=== PATIENT | female | born 1985 | race Caucasian/White ===

== ENCOUNTER 2016-07-22 07:45 | Emergency (ER) | payer SELFPAY ==
[~2016-07-22] VITALS: Ht 162.6 cm; Wt 87.7 kg
[2016-07-22 07:50] VITALS: BP 152/83; TEMP 98.2
[2016-07-22] MEDS ORDERED: LOPRESSOR 225 MG/TAB PO (07:53)
[2016-07-22] MEDS ORDERED: LEXAPRO20 MG PO (07:53)
[2016-07-22] MEDS ORDERED: CATAPRES 0.1MG0.1 MG PO (07:54)
[2016-07-22 08:42] LABS: PH 5 (5-8); SQUAMOUS EPITHELIAL 0-2 /hpf; URINE APPEARANCE Clear; URINE BACTERIA None Seen /hpf; URINE BILIRUBIN Negative (NEGATIVE); URINE BLOOD 1+ (NEGATIVE); URINE COLOR Yellow; URINE GLUCOSE Negative (NEGATIVE); URINE KETONE Negative (NEGATIVE); URINE RBC 0-2 /hpf; URINE UROBILINOGEN Negative (NEGATIVE); URINE WBC 0-2 /hpf
[2016-07-22] MEDS ORDERED: NORCO 325 MG-51 TAB PO (09:42)
[2016-07-22 10:02] VITALS: PULSE 89
== END 2016-07-22 10:03 | disposition home or self-care (01) ==
LOC: COL.ER 07:45
PROVIDERS: Nurse Practitioner
DX: R10.12 Left upper quadrant pain (principal); I10 Essential (primary) hypertension; F32.9 Major depressive disorder, single episode, unspecified; F17.210 Nicotine dependence, cigarettes, uncomplicated; Z87.442 Personal history of urinary calculi; R31.9 Hematuria, unspecified

== ENCOUNTER 2016-07-24 19:30 | Emergency (ER) | payer SELFPAY ==
[~2016-07-24] VITALS: Ht 162.6 cm; Wt 87.7 kg
[~2016-07-24 19:30] MED LIST: CATAPRES 0.1MG0.1 MG PO; LEXAPRO20 MG PO; LOPRESSOR 225 MG/TAB PO; NORCO 325 MG-51 TAB PO
[2016-07-24 19:33] VITALS: TEMP 98.3
[2016-07-24 20:03] LABS: BASO # 0.1 (0.0-0.2); BASO % 0.4 % (0.0-2.0); EOS # 0.2 (0.0-0.7); EOS % 1.8 % (0-4.0); GRAN # 8.1 (1.4-6.5); GRAN % 65.1 % (42.2-75.2); HEMATOCRIT 36.8 % (37.0-47.0); HEMOGLOBIN 12.5 g/dl (12.5-16.0); LYMPH # 3.2 (1.2-3.4); LYMPH % 25.6 % (20.0-51.0); MEAN CELL VOLUME 91 fl (80.0-100.0); MEAN CORPUSCULAR HEMOGLOBIN 31 pg (27.0-31.0); MEAN CORPUSCULAR HGB CONC 34 g/dl (33.0-37.0); MEAN PLATELET VOLUME 9.5 fl (7.4-10.4); MONO # 0.8 (0.1-0.6); MONO % 6.5 % (1.7-9.3); PLATELET COUNT 263 K/mm3 (130-400); RED BLOOD COUNT 4.03 M/mm3 (4.10-5.30); REDCELL DISTRIBUTION WIDTH-CV 12.8 % (11.5-14.5); WHITE BLOOD COUNT 12.5 K/mm3 (4.8-10.8)
[2016-07-24 20:23] LABS: ADJUSTED CALCIUM 9.4 mg/dL (8.4-10.2); BILIRUBIN,TOTAL 0.5 mg/dL (0.0-1.0); CALCIUM 9.4 mg/dL (8.4-10.2); CREATININE, serum 0.81 mg/dL (0.52-1.25); POTASSIUM 3.9 mmol/L (3.4-5.0); TOTAL PROTEIN 7.2 gm/dL (6.4-8.2)
[2016-07-24] MEDS ORDERED: PEPCID 20MG TAB20 MG PO (21:27)
[2016-07-24 21:49] VITALS: BP 153/90; PULSE 71
== END 2016-07-24 21:50 | disposition home or self-care (01) ==
LOC: COL.ER 19:30
PROVIDERS: Emergency Medicine
DX: R10.13 Epigastric pain (principal); R10.11 Right upper quadrant pain; R11.0 Nausea; I10 Essential (primary) hypertension; F17.210 Nicotine dependence, cigarettes, uncomplicated
CPT/HCPCS: J2765; J3010; J7030; Q9967

== ENCOUNTER 2016-08-13 11:46 | Emergency (ER) | payer SELFPAY ==
[~2016-08-13] VITALS: Ht 162.6 cm; Wt 83.2 kg
[~2016-08-13 11:46] MED LIST changes: +PEPCID 20MG TAB20 MG PO
[2016-08-13 11:56] VITALS: BP 148/98; TEMP 98.5
[2016-08-13] MEDS ORDERED: ULTRAM 50MG TAB50 MG PO (12:17)
[2016-08-13 12:30] VITALS: PULSE 73
== END 2016-08-13 12:31 | disposition home or self-care (01) ==
LOC: COL.ER 11:46
DX: S30.0XXA Contusion of lower back and pelvis, initial encounter (principal); I10 Essential (primary) hypertension; F17.210 Nicotine dependence, cigarettes, uncomplicated; W11.XXXA Fall on and from ladder, initial encounter